=== PATIENT | female | born 1990 | race Caucasian/White ===

== ENCOUNTER 2017-01-18 19:57 | Emergency (ER) | payer OTHER ==
--- NOTE | 2017-01-18 21:03 | DIAGNOSTIC IMAGING REPORT ---
PROCEDURE: CT ABDOMEN/PELVIS W/O CONTRAST INDICATION: FLANK PAIN TECHNIQUE: Noncontrast axial images with sagittal and coronal reformations. COMPARISON: None. FINDINGS: ABDOMEN: Kidneys and ureters are normal. No evidence of urinary tract calculus or obstruction. Mild distention of the gallbladder with findings suggesting hyperdense layering material. Liver, spleen, pancreas, and aorta are normal. Bowel pattern is normal, including appendix. PELVIS: Uterus and adnexal structures are normal. No evidence of free fluid. IMPRESSION: 1. Mild distention of the gallbladder with findings suggesting layering hyperdense material. Consider biliary sludge or gallstones. 2. Normal kidneys. No evidence of urinary tract obstruction. 3. Otherwise negative CT abdomen and pelvis. 4. Findings discussed with DONAVON Seay. All CT scans at this facility use dose modulation, iterative reconstruction, and/or weight-based dosing when appropriate to reduce radiation dose to as low as reasonably achievable.
--- NOTE | 2017-01-18 22:30 | ED CLINICAL REPORT ---
Clinical Report - Physicians/Mid Levels [facility] [address] [place] [address] 01/18/2017 19:59 Patient: CONNIE PARSONS Time Seen: 20:12; initial patient contact. Arrived- By private vehicle. Historian- patient. HISTORY OF PRESENT ILLNESS Chief Complaint: VOMITING. dysuria. This started today ( Patient reports she started having some low back pain and nausea. She reports some discomfort with urination. She states she has a history of kidney stones.). no fever, no chills, also has right upper quadrant pain when bending over. The patient has had flank pain. She has had nausea and vomiting. The vomiting has occurred only once. No black stools, bloody stools, abdominal pain or constipation. Has not recently been on antibiotics. The illness is described as mild. Similar symptoms previously: Several times. Recent medical care: Not recently seen/assessed. REVIEW OF SYSTEMS No fever, muscle aches or difficulty with urination. All systems otherwise negative, except as recorded above. PAST HISTORY See nurses notes. Problems: Nephrolithiasis. Depression. Additional Surgeries: no known surgeries. Medications: Wellbutrin Oral 300 mg, daily. Allergies: Penicillin. SOCIAL HISTORY Never smoker. No drug use. ADDITIONAL NOTES The nursing notes have been reviewed with agreement regarding the chief complaint, HPI, ROS, PMH and patient medications and allergies. PHYSICAL EXAM Vital Signs: 01/18/2017 22:33 BP: 134/93. HR: 93. RR: 15. O2 saturation: 100%. Temp: 98.1 F. 01/18/2017 21:26 BP: 137/81. HR: 90. RR: 20. O2 saturation: 100%. Pain level now: 5/10. Have been reviewed. Appearance: Alert. Oriented X3. No acute distress. Eyes: Pupils equal, round and reactive to light. Eyes normal inspection. Neck: Normal inspection. Neck supple. CVS: Normal heart rate and rhythm. Heart sounds normal. Respiratory: No respiratory distress. Breath sounds normal. Abdomen: Soft. Mild tenderness in the right upper quadrant with guarding present. Positive Max's sign. No rebound tenderness or obturator or psoas sign present. Bowel sounds normal. No organomegaly. No mass. Femoral pulses equal. Back: Mild CVA tenderness on the right. Skin: Skin warm and dry. Normal skin color. No rash. Normal skin turgor. Extremities: No lower extremity edema. Neuro: Oriented X 3. LABS, X-RAYS, AND EKG Abdominal CT: Name: Connie Parsons : 1990 MR#: [id number] Ordering Provider: MARY JO GOMEZ Exam(s): CT ABDOMEN/PELVIS W/O CONTRAST Date of Exam: 01/18/2017 __ PROCEDURE: CT ABDOMEN/PELVIS W/O CONTRAST INDICATION: FLANK PAIN TECHNIQUE: Noncontrast axial images with sagittal and coronal reformations. COMPARISON: None. FINDINGS: ABDOMEN: Kidneys and ureters are normal. No evidence of urinary tract calculus or obstruction. Mild distention of the gallbladder with findings suggesting hyperdense layering material. Liver, spleen, pancreas, and aorta are normal. Bowel pattern is normal, including appendix. PELVIS: Uterus and adnexal structures are normal. No evidence of free fluid. IMPRESSION: 1. Mild distention of the gallbladder with findings suggesting layering hyperdense material. Consider biliary sludge or gallstones. 2. Normal kidneys. No evidence of urinary tract obstruction. 3. Otherwise negative CT abdomen and pelvis. 4. Findings discussed with DONAVON Seay. All CT scans at this facility use dose modulation, iterative reconstruction, and/or weight-based dosing when appropriate to reduce radiation dose to as low as reasonably achievable. Electronically Final signed by:Philip Gardner MD 01/18/2017 8:59:40 PM Technologist: IM.RSF. The study was independently viewed by me, interpreted by the radiologist and discussed with the radiologist. Abdominal Sonogram: No acute disease. No gallstones. The study was independently viewed by me, interpreted by the radiologist and discussed with the radiologist. Laboratory Tests: UA-Culture if indicated: (ROSANNE: 01/18/2017 20:06) ( [facility] 01/18/2017 20:37) Final results Test Result Flag Units (Reference) URINE COLOR YELLOW URINE APPEARANCE CLOUDY URINE GLUCOSE NEGATIVE (NEGATIVE) URINE BILIRUBIN NEGATIVE (NEGATIVE) URINE KETONE TRACE (NEGATIVE) URINE SPECIFIC GRAVITY 1.020 (1.010-1.030) URINE PH 7.5 (5.0-8.0) URINE PROTEIN TRACE (NEGATIVE) URINE UROBILINOGEN 0.2 EU/dL (0.2-1.0) URINE NITRITE NEGATIVE (NEGATIVE) URINE BLOOD NEGATIVE (NEGATIVE) URINE LEUK ESTERASE NEGATIVE (NEGATIVE) URINE RBC NONE SEEN rbc/hpf (0-1) URINE WBC 1-3 wbc/hpf (0-1) URINE EPITHELIAL CELLS 1-3 EPI/hpf (0-5) URINE BACTERIA TRACE (<1+) (NONE SEEN) URINE COMMENT CULT NOT INDICATED 2+ MUCUS3+ AMORPHOUS URATESURINE CULTURES ARE SET-UP BASED ON THE FOLLOWING CRITERIA:POSITIVE NITRITEPOSITIVE LEUKOCYTE ESTERASEGREATER THAN 10 WHITE BLOOD CELLSMODERATE (2+) OR GREATER BACTERIA Urine: (ROSANNE: 01/18/2017 20:06) ( [facility] 01/18/2017 20:29) Final results Test Result Flag Units (Reference) URINE NEGATIVE CMP: (ROSANNE: 01/18/2017 20:10) ( [facility] 01/18/2017 21:46) Final results Test Result Flag Units (Reference) GLUCOSE 94 mg/dL (70-110) BUN 14 mg/dL (7-18) CREATININE 0.7 mg/dL (0.6-1.3) Estimated GFR >60 mL/min Estimated GFR- >60 mL/min Note: Persistent reduction over 3 months in eGFR<60 mL/min/1.73 m2 defines CKD. Patients with eGFR values>=60 mL/min/1.73 m2 may also have CKD if evidence ofpersistent proteinuria. Additional information may be foundat www.kidney.org. SODIUM 141 mmol/L (136-145) POTASSIUM 3.7 mmol/L (3.5-5.1) CHLORIDE 102 mmol/L (98-107) CARBON DIOXIDE 28 mmol/L (21-32) CALCIUM 9.5 mg/dL (8.5-10.1) TOTAL PROTEIN 8.0 g/dL (6.4-8.2) ALBUMIN 4.3 g/dL (3.3-5.0) BILIRUBIN, TOTAL 0.4 mg/dL (0.0-1.0) ALKALINE PHOSPHATASE 69 U/L (46-116) AST (SGOT) 21 U/L (15-37) ALT (SGPT) 25 U/L (12-78) . PROGRESS AND PROCEDURES Course of Care: Patient is stable. Physical exam findings are improved. Symptoms much better. CLINICAL IMPRESSION Intractable vomiting with nausea and dehydration. Biliary colic. No gallstones or cholecystitis. INSTRUCTIONS No strenuous activity. Take clear liquids only for the next 24 hours. No alcohol. Do not smoke. Warnings: Further evaluation is necessary. It is very important to follow up with a physician. Your Current Medications: CONTINUE TAKING THE FOLLOWING MEDICATIONS: Wellbutrin Oral : 300 mg daily. Prescription Medications: Reglan 10 mg tablets: take 1 orally every 8 hours as needed for nausea, vomiting or indigestion. Dispense fifteen (15). No refills. Substitution is permissible. Follow-up: Follow up with your doctor Thursday if not better. Follow up with a adzing and boring machine feeder- as recommended by your primary care physician- if not better. Understanding of the discharge instructions verbalized by patient. (Electronically signed by Mary Jo Gomez PA-C 01/18/2017 23:13)
--- NOTE | 2017-01-18 22:30 | ED CLINICAL REPORT ---
Clinical Report - Physicians/Mid Levels [facility] [address] [place] [address] 01/18/2017 19:59 Patient: CONNIE PARSONS Time Seen: 20:12; initial patient contact. Arrived- By private vehicle. Historian- patient. HISTORY OF PRESENT ILLNESS Chief Complaint: VOMITING. dysuria. This started today ( Patient reports she started having some low back pain and nausea. She reports some discomfort with urination. She states she has a history of kidney stones.). no fever, no chills, also has right upper quadrant pain when bending over. The patient has had flank pain. She has had nausea and vomiting. The vomiting has occurred only once. No black stools, bloody stools, abdominal pain or constipation. Has not recently been on antibiotics. The illness is described as mild. Similar symptoms previously: Several times. Recent medical care: Not recently seen/assessed. REVIEW OF SYSTEMS No fever, muscle aches or difficulty with urination. All systems otherwise negative, except as recorded above. PAST HISTORY See nurses notes. Problems: Nephrolithiasis. Depression. Additional Surgeries: no known surgeries. Medications: Wellbutrin Oral 300 mg, daily. Allergies: Penicillin. SOCIAL HISTORY Never smoker. No drug use. ADDITIONAL NOTES The nursing notes have been reviewed with agreement regarding the chief complaint, HPI, ROS, PMH and patient medications and allergies. PHYSICAL EXAM Vital Signs: 01/18/2017 22:33 BP: 134/93. HR: 93. RR: 15. O2 saturation: 100%. Temp: 98.1 F. 01/18/2017 21:26 BP: 137/81. HR: 90. RR: 20. O2 saturation: 100%. Pain level now: 5/10. Have been reviewed. Appearance: Alert. Oriented X3. No acute distress. Eyes: Pupils equal, round and reactive to light. Eyes normal inspection. Neck: Normal inspection. Neck supple. CVS: Normal heart rate and rhythm. Heart sounds normal. Respiratory: No respiratory distress. Breath sounds normal. Abdomen: Soft. Mild tenderness in the right upper quadrant with guarding present. Positive Max's sign. No rebound tenderness or obturator or psoas sign present. Bowel sounds normal. No organomegaly. No mass. Femoral pulses equal. Back: Mild CVA tenderness on the right. Skin: Skin warm and dry. Normal skin color. No rash. Normal skin turgor. Extremities: No lower extremity edema. Neuro: Oriented X 3. LABS, X-RAYS, AND EKG Abdominal CT: Name: Connie Parsons : 1990 MR#: [id number] Ordering Provider: MARY JO GOMEZ Exam(s): CT ABDOMEN/PELVIS W/O CONTRAST Date of Exam: 01/18/2017 __ PROCEDURE: CT ABDOMEN/PELVIS W/O CONTRAST INDICATION: FLANK PAIN TECHNIQUE: Noncontrast axial images with sagittal and coronal reformations. COMPARISON: None. FINDINGS: ABDOMEN: Kidneys and ureters are normal. No evidence of urinary tract calculus or obstruction. Mild distention of the gallbladder with findings suggesting hyperdense layering material. Liver, spleen, pancreas, and aorta are normal. Bowel pattern is normal, including appendix. PELVIS: Uterus and adnexal structures are normal. No evidence of free fluid. IMPRESSION: 1. Mild distention of the gallbladder with findings suggesting layering hyperdense material. Consider biliary sludge or gallstones. 2. Normal kidneys. No evidence of urinary tract obstruction. 3. Otherwise negative CT abdomen and pelvis. 4. Findings discussed with DONAVON Seay. All CT scans at this facility use dose modulation, iterative reconstruction, and/or weight-based dosing when appropriate to reduce radiation dose to as low as reasonably achievable. Electronically Final signed by:Philip Gardner MD 01/18/2017 8:59:40 PM Technologist: IM.RSF. The study was independently viewed by me, interpreted by the radiologist and discussed with the radiologist. Abdominal Sonogram: No acute disease. No gallstones. The study was independently viewed by me, interpreted by the radiologist and discussed with the radiologist. Laboratory Tests: UA-Culture if indicated: (ROSANNE: 01/18/2017 20:06) ( [facility] 01/18/2017 20:37) Final results Test Result Flag Units (Reference) URINE COLOR YELLOW URINE APPEARANCE CLOUDY URINE GLUCOSE NEGATIVE (NEGATIVE) URINE BILIRUBIN NEGATIVE (NEGATIVE) URINE KETONE TRACE (NEGATIVE) URINE SPECIFIC GRAVITY 1.020 (1.010-1.030) URINE PH 7.5 (5.0-8.0) URINE PROTEIN TRACE (NEGATIVE) URINE UROBILINOGEN 0.2 EU/dL (0.2-1.0) URINE NITRITE NEGATIVE (NEGATIVE) URINE BLOOD NEGATIVE (NEGATIVE) URINE LEUK ESTERASE NEGATIVE (NEGATIVE) URINE RBC NONE SEEN rbc/hpf (0-1) URINE WBC 1-3 wbc/hpf (0-1) URINE EPITHELIAL CELLS 1-3 EPI/hpf (0-5) URINE BACTERIA TRACE (<1+) (NONE SEEN) URINE COMMENT CULT NOT INDICATED 2+ MUCUS3+ AMORPHOUS URATESURINE CULTURES ARE SET-UP BASED ON THE FOLLOWING CRITERIA:POSITIVE NITRITEPOSITIVE LEUKOCYTE ESTERASEGREATER THAN 10 WHITE BLOOD CELLSMODERATE (2+) OR GREATER BACTERIA Urine: (ROSANNE: 01/18/2017 20:06) ( [facility] 01/18/2017 20:29) Final results Test Result Flag Units (Reference) URINE NEGATIVE CMP: (ROSANNE: 01/18/2017 20:10) ( [facility] 01/18/2017 21:46) Final results Test Result Flag Units (Reference) GLUCOSE 94 mg/dL (70-110) BUN 14 mg/dL (7-18) CREATININE 0.7 mg/dL (0.6-1.3) Estimated GFR >60 mL/min Estimated GFR- >60 mL/min Note: Persistent reduction over 3 months in eGFR<60 mL/min/1.73 m2 defines CKD. Patients with eGFR values>=60 mL/min/1.73 m2 may also have CKD if evidence ofpersistent proteinuria. Additional information may be foundat www.kidney.org. SODIUM 141 mmol/L (136-145) POTASSIUM 3.7 mmol/L (3.5-5.1) CHLORIDE 102 mmol/L (98-107) CARBON DIOXIDE 28 mmol/L (21-32) CALCIUM 9.5 mg/dL (8.5-10.1) TOTAL PROTEIN 8.0 g/dL (6.4-8.2) ALBUMIN 4.3 g/dL (3.3-5.0) BILIRUBIN, TOTAL 0.4 mg/dL (0.0-1.0) ALKALINE PHOSPHATASE 69 U/L (46-116) AST (SGOT) 21 U/L (15-37) ALT (SGPT) 25 U/L (12-78) . PROGRESS AND PROCEDURES Course of Care: Patient is stable. Physical exam findings are improved. Symptoms much better. CLINICAL IMPRESSION Intractable vomiting with nausea and dehydration. Biliary colic. No gallstones or cholecystitis. INSTRUCTIONS No strenuous activity. Take clear liquids only for the next 24 hours. No alcohol. Do not smoke. Warnings: Further evaluation is necessary. It is very important to follow up with a physician. Your Current Medications: CONTINUE TAKING THE FOLLOWING MEDICATIONS: Wellbutrin Oral : 300 mg daily. Prescription Medications: Reglan 10 mg tablets: take 1 orally every 8 hours as needed for nausea, vomiting or indigestion. Dispense fifteen (15). No refills. Substitution is permissible. Follow-up: Follow up with your doctor Thursday if not better. Follow up with a day care supervisor- as recommended by your primary care physician- if not better. Understanding of the discharge instructions verbalized by patient. (Electronically signed by Mary Jo Gomez PA-C 01/18/2017 23:13)
--- NOTE | 2017-01-18 22:31 | ED ORDER SUMMARY ---
..... Patient: FEDE PARSONS OrderSheet [facility] VisitID: [id number] [place] [address] 26y, F Registration Date/Time: 01/18/2017 ORDER SHEET Weight: 74.8 kg (stated) Allergies: Penicillin GENERAL ORDERS: Urine Urgent (20:12 01/18/2017 ABlanchette PA-C) (Ack 20:14 IJurca ER Tech1) (20:41 HSoule) UA-Culture if indicated Urgent (20:12 01/18/2017 ABlanchette PA-C) (Ack 20:14 IJurca ER Tech1) (20:41 HSoule) CT Abd/Pel wo Cont (history of stones, left flank pain) Urgent (20:34 01/18/2017 ABlanchette PA-C) (Ack 20:38 IJurca ER Tech1) (22:20 HSoule) CMP Urgent (21:02 01/18/2017 ABlanchette PA-C) (Ack 21:03 IJurca ER Tech1) (22:20 HSoule) US Abdomen Limited (Yes) (right upper quad with sludge in the GB seen on CT, needs better view of gallbladder) Urgent (21:02 01/18/2017 ABlanchette PA-C) (Ack 21:13 IJurca ER Tech1) (22:31 AMcQuoid ER Tech1) MEDICATION ORDERS: Zofran ODT PO 4 mg (NOW) (21:01/18/2017 ABlanchette PA-C) (Cancelled: Wrong Order21:06 HSoule) IV FLUIDS: Zofran IV 4 mg (NOW) (20:23 01/18/2017 HSoule verbal order read back to ABlanchette PA-C) (Ack 20:23 HSoule) (20:26 HSoule) IV NS with Normal Saline 1 Liter: initial bolus none -, then 1000 mL/hr for X1 (NOW) (21:01 01/18/2017 ABlanchette PA-C) (21:06 HSoule) Zofran IV 4 mg (NOW) (21:07 01/18/2017 HSoule verbal order read back to ABlanchette PA-C) (21:07 HSoule) Toradol IV 30 mg (NOW) (21:07 01/18/2017 HSoule verbal order read back to Mari ANDRADE) (21:07 HSoule) ORDER SHEET NOTES: [Electronically signed by John Flores R.N. (22:38 01/18/2017)] [Electronically signed by Yane Sutton PA-C (23:13 01/18/2017)] [Electronically locked/signed by John Flores R.N. (:38 01/18/2017)]
--- NOTE | 2017-01-18 22:31 | ED NURSING NOTES ---
Clinical Report - Nurses [facility] [address] [place] [address] 01/18/2017 19:59 [id number] Triage time 20:05 Jan 18 2017. Acuity: LEVEL 3. Chief Complaint: PAINFUL URINATION and LOW BACK PAIN (vomiting). SEPSIS SCREEN: Sepsis Screen: negative. Negative (no infection suspected/documented). --20:09 Jany Covarrubias 20:05 01/18/17. HR: 92. RR: 20. O2 saturation: 98% on room air. Temp: 98.7 F (oral). Pain level now: 03/07. --20:09 Jany Covarrubias. Weight: 74.8 kg stated. Height/Length: 66 inches Per Patient. BMI: 26.6. --20:06 Jany Covarrubias. Medications Wellbutrin Oral 300 mg, daily. --20:08 Jany Covarrubias. Allergies Penicillin. --20:09 Jany Covarrubias. Medication/allergy information source: the patient. --20:09 Jany Covarrubias. History Arrived by private vehicle. Historian: patient. Unaccompanied. Primary physician (loulou roman). This started last night. ( Patient reports she started having some low back pain and nausea. She reports some discomfort with urination. She states she has a history of kidney stones.). PAST MEDICAL HX: Immunizations: up-to-date. Last normal menstrual period- December 30. Sexual history - sexually active. No contraception. SOCIAL HX: Never smoker. Occasional alcohol use. History of drug use: marijuana. No infectious disease exposure. ABUSE ASSESSMENT: No report of abuse. FALL RISK ASSESSMENT: Fall risk assessment completed. No fall risk identified. NUTRITIONAL RISK ASSESSMENT: The nutritional risk assessment revealed no deficiencies. FUNCTIONAL ASSESSMENT: Functional assessment: no impairments noted. LEARNING NEEDS ASSESSMENT: The learning needs assessment revealed no barriers. SKIN INTEGRITY ASSESSMENT: Skin integrity risk assessment completed. No skin integrity risk identified. --20:09 Jany Covarrubias. PROBLEMS: Nephrolithiasis. Depression. --20:09 Jany Covarrubias. ADDITIONAL SURGERIES: no known surgeries. Interventions ID band on patient. To treatment room. --20: Jany Covarrubias. PHYSICAL ASSESSMENT Ambulatory to room. GENERAL / NEURO / PSYCH: Alert. Oriented X 4. Appears in no acute distress. HEENT: Mucous membranes are pink. RESPIRATORY: Respirations not labored. CVS: Normal heart rate and rhythm. GI / : Abdomen soft. SKIN: Skin is warm and dry. BACK: ( Right side low back pain radiates to right side of abdomen). --20:10 Jany Covarrubias. NURSING PROGRESS NOTES 20:01/18/2017 Site #1 started via IV in the right antecubital space with an 20g angiocath, with aseptic technique and good blood return; one attempt. Blood drawn: rainbow set. Labeled in the presence of the patient and sent to the lab. Saline lock flushed with 10 mL saline. --20: Jany Covarrubias 20:01/18/17. Monitoring of patient in place. Patient gowned. Reassurance given to the patient. Two patient identifiers checked. Call light placed in reach. Side rails up x 1. Bed placed in lowest position. Brakes of bed on. Patient ready for evaluation- chart flagged and ED physician notified. --20: Jany Covarrubias Patient ID band checked for patient name and birthdate: patient confirmed. Instructions provided to collect clean catch urine and patient verbalized understanding. Clean catch urine collected with return of yellow-colored clear urine; sample sent to lab for urinalysis and HCG. Specimen labeled in the presence of the patient. --20: Jany Covarrubias 20:26 01/18/2017 Zofran (Ondansetron HCl) IVP 4 mg given over 1 minute(s) via site #1. Allergies verified and confirmed 5 rights. IV patency established. IV site checked: no pain, redness, or swelling. IV flushed thoroughly pre- and post-medication administration. IVP given by RN. --20: Jany Covarrubias 21:06 01/18/2017 Started bag #1 1000 mL IV Fluids IV NS (Saline); at 1000 mL/hr over 1 hour(s) via site #1 via IV pump. Allergies verified and confirmed 5 rights. IV patency established. IV site checked: no pain, redness, or swelling. IV flushed thoroughly pre- and post-medication administration. --21:06 Jany Covarrubias 21:01/18/2017 Zofran (Ondansetron HCl) IVP 4 mg given over 1 minute(s) via site #1. Allergies verified and confirmed 5 rights. IV patency established. IV site checked: no pain, redness, or swelling. IV flushed thoroughly pre- and post-medication administration. IVP given by RN. --21:07 Jany Covarrubias 21:01/18/2017 Toradol IVP 30 mg given over 1 minute(s) via site #1. Allergies verified and confirmed 5 rights. IV patency established. IV site checked: no pain, redness, or swelling. IV flushed thoroughly pre- and post-medication administration. IVP given by RN. --21:07 Jany Covarrubias 21:26 01/18/17. BP: 137/81. HR: 90. RR: 20. O2 saturation: 100% on room air. Pain level now: 5/10. --21:28 Jany Covarrubias 21:53 Ultrasound at bedside for exam. --21:54 McQuoid, Rakel, ER Tech1. DISPOSITION / DISCHARGE 22:34 01/18/2017 Site #1 removed upon discharge. Catheter intact. Bandaid applied. --22:34 John Flores R.N. Departure time: 22:37. Condition at departure: improved. ( pain is resolved.). No learning barriers present. Discharge instructions provided and reviewed with the patient. Reviewed medication(s) side effects, precautions, dosing and course information. Prescription(s) given to the patient (reglan). Patient verbalized understanding. Written instructions provided in Mexican. The patient was discharged by the physician business support assistant. She was discharged home and unaccompanied at time of discharge. She left the Emergency Department ambulatory and via private vehicle. Patient driving. --22:37 John Flores R.N. 22:33 01/18/17. BP: 134/93. HR: 93. RR: 15. O2 saturation: 100%. Temp: 98.1 F. Pain level now 0/10. --22:37 John Flores R.N. Departure time: 22:38. SHERRY COMA SCORE: [place] Coma Scale: 15- eyes open spontaneously (4); best verbal response- oriented x 4 (5); best motor response- obeys commands (6). --22:38 John Flores R.N. Locked/Released at 01/18/2017 22:38 by John Flores R.N.
--- NOTE | 2017-01-18 22:31 | ED ORDER SUMMARY ---
..... Patient: FEDE PARSONS OrderSheet [facility] VisitID: [id number] [place] [address] 26y, F Registration Date/Time: 01/18/2017 ORDER SHEET Weight: 74.8 kg (stated) Allergies: Penicillin GENERAL ORDERS: Urine Urgent (20:12 01/18/2017 ABlanchette PA-C) (Ack 20:14 IJurca ER Tech1) (20:41 HSoule) UA-Culture if indicated Urgent (20:12 01/18/2017 ABlanchette PA-C) (Ack 20:14 IJurca ER Tech1) (20:41 HSoule) CT Abd/Pel wo Cont (history of stones, left flank pain) Urgent (20:34 01/18/2017 ABlanchette PA-C) (Ack 20:38 IJurca ER Tech1) (22:20 HSoule) CMP Urgent (21:02 01/18/2017 ABlanchette PA-C) (Ack 21:03 IJurca ER Tech1) (22:20 HSoule) US Abdomen Limited (Yes) (right upper quad with sludge in the GB seen on CT, needs better view of gallbladder) Urgent (21:02 01/18/2017 ABlanchette PA-C) (Ack 21:13 IJurca ER Tech1) (22:31 AMcQuoid ER Tech1) MEDICATION ORDERS: Zofran ODT PO 4 mg (NOW) (21:01/18/2017 ABlanchette PA-C) (Cancelled: Wrong Order21:06 HSoule) IV FLUIDS: Zofran IV 4 mg (NOW) (20:23 01/18/2017 HSoule verbal order read back to ABlanchette PA-C) (Ack 20:23 HSoule) (20:26 HSoule) IV NS with Normal Saline 1 Liter: initial bolus none -, then 1000 mL/hr for X1 (NOW) (21:01 01/18/2017 ABlanchette PA-C) (21:06 HSoule) Zofran IV 4 mg (NOW) (21:07 01/18/2017 HSoule verbal order read back to ABlanchette PA-C) (21:07 HSoule) Toradol IV 30 mg (NOW) (21:07 01/18/2017 HSoule verbal order read back to Mari ANDRADE) (21:07 HSoule) ORDER SHEET NOTES: [Electronically signed by John Flores R.N. (22:38 01/18/2017)] [Electronically signed by Yane Sutton PA-C (23:13 01/18/2017)] [Electronically locked/signed by John Flores R.N. (:38 01/18/2017)]
--- NOTE | 2017-01-18 23:13 | ED MAR SUMMARY ---
..... Medication Administration Record [facility] [address] [place] [address] Patient: FEDE PARSONS Visit ID: [id number] 26y, F Weight: 74.8 kg Height/Length: 66 in BMI: 26.6 ALLERGIES: Penicillin Given 20:01/18/2017 Jany Covarrubias, Medication Administered: ZOFRAN [IVP] (ONDANSETRON HCL), Dose: 4 mg IVP over 1 minute(s), Site: #1 right AC. Medication Ordered: Zofran IV 4 mg (NOW). Start 21:01/18/2017 Jany Covarrubias, Medication Administered: IV NS (SALINE), Dose: IV Fluids over 1 hour(s), Rate: 1000 mL/hr, Dispensed: 1000 mL bag, Site: #1 right AC. Medication Ordered: IV NS with Normal Saline 1 Liter: initial bolus none -, then 1000 mL/hr for X1 (NOW). Given :01/18/2017 Jany Covarrubias, Medication Administered: ZOFRAN [IVP] (ONDANSETRON HCL), Dose: 4 mg IVP over 1 minute(s), Site: #1 right AC. Medication Ordered: Zofran IV 4 mg (NOW). Given :01/18/2017 Jany Covarrubias, Medication Administered: TORADOL [IVP], Dose: 30 mg IVP over 1 minute(s), Site: #1 right AC. Medication Ordered: Toradol IV 30 mg (NOW).
--- NOTE | 2017-01-18 23:13 | ED MAR SUMMARY ---
..... Medication Administration Record [facility] [address] [place] [address] Patient: FEDE PARSONS Visit ID: [id number] 26y, F Weight: 74.8 kg Height/Length: 66 in BMI: 26.6 ALLERGIES: Penicillin Given 20:01/18/2017 Jany Covarrubias, Medication Administered: ZOFRAN [IVP] (ONDANSETRON HCL), Dose: 4 mg IVP over 1 minute(s), Site: #1 right AC. Medication Ordered: Zofran IV 4 mg (NOW). Start 21:01/18/2017 Jany Covarrubias, Medication Administered: IV NS (SALINE), Dose: IV Fluids over 1 hour(s), Rate: 1000 mL/hr, Dispensed: 1000 mL bag, Site: #1 right AC. Medication Ordered: IV NS with Normal Saline 1 Liter: initial bolus none -, then 1000 mL/hr for X1 (NOW). Given :01/18/2017 Jany Covarrubias, Medication Administered: ZOFRAN [IVP] (ONDANSETRON HCL), Dose: 4 mg IVP over 1 minute(s), Site: #1 right AC. Medication Ordered: Zofran IV 4 mg (NOW). Given :01/18/2017 Jany Covarrubias, Medication Administered: TORADOL [IVP], Dose: 30 mg IVP over 1 minute(s), Site: #1 right AC. Medication Ordered: Toradol IV 30 mg (NOW).
--- NOTE | 2017-01-18 23:13 | ED DISCHARGE INSTRUCTIONS ---
Patient: FEDE PARSONS General Instructions [facility] VisitID: [id number] [place] [address] 26y, F Registration Date/Time: 01/18/2017 Intractable vomiting with nausea and dehydration. Biliary colic. No gallstones or cholecystitis. INSTRUCTIONS No strenuous activity. Take clear liquids only for the next 24 hours. No alcohol. Do not smoke. Warnings: Further evaluation is necessary. It is very important to follow up with a physician. Your Current Medications: CONTINUE TAKING THE FOLLOWING MEDICATIONS: Wellbutrin Oral : 300 mg daily. Prescription Medications: Reglan 10 mg tablets: take 1 orally every 8 hours as needed for nausea, vomiting or indigestion. Dispense fifteen (15). No refills. Substitution is permissible. Follow-up: Follow up with your doctor Thursday if not better. Follow up with a software quality tester- as recommended by your primary care physician- if not better. Understanding of the discharge instructions verbalized by patient. No strenuous activity. (Electronically signed by Yane Sutton PA-C 01/18/2017 23:13)
--- NOTE | 2017-01-18 23:13 | ED MED RECONCILIATION SUMMARY ---
Patient: FEDE PARSONS Medication Reconciliation Report [facility] VisitID: [id number] [place] [address] 26y, F Registration Date/Time: 01/18/2017 Weight: 74.8 kg Height/Length: 66 in. BMI: 26.6 ALLERGIES: Penicillin The patient's Home Medications are listed below: CONTINUE TAKING THE FOLLOWING MEDICATIONS: Wellbutrin Oral 300 mg, daily The source(s) of the original Home Medication information: patient The following Medications were given to the patient in the Emergency Department: Zofran [IVP] IVP 4 mg, administered: 01/18/2017 8:26:00 PM IV NS IV Fluids bolus 0, then 1000 mL/hr, administered: 01/18/2017 9:06:00 PM Zofran [IVP] IVP 4 mg, administered: 01/18/2017 9:07:00 PM Toradol [IVP] IVP 30 mg, administered: 01/18/2017 9:07:00 PM The following Medications were prescribed to the patient: Reglan 10 mg tablets: take 1 orally every 8 hours as needed for nausea, vomiting or indigestion. Dispense fifteen (15). No refills. Substitution is permissible. -- Yane Sutton PA-C
--- NOTE | 2017-01-18 23:13 | ED DISCHARGE INSTRUCTIONS ---
Patient: FEDE PARSONS General Instructions [facility] VisitID: [id number] [place] [address] 26y, F Registration Date/Time: 01/18/2017 Intractable vomiting with nausea and dehydration. Biliary colic. No gallstones or cholecystitis. INSTRUCTIONS No strenuous activity. Take clear liquids only for the next 24 hours. No alcohol. Do not smoke. Warnings: Further evaluation is necessary. It is very important to follow up with a physician. Your Current Medications: CONTINUE TAKING THE FOLLOWING MEDICATIONS: Wellbutrin Oral : 300 mg daily. Prescription Medications: Reglan 10 mg tablets: take 1 orally every 8 hours as needed for nausea, vomiting or indigestion. Dispense fifteen (15). No refills. Substitution is permissible. Follow-up: Follow up with your doctor Thursday if not better. Follow up with a solution consultant- as recommended by your primary care physician- if not better. Understanding of the discharge instructions verbalized by patient. No strenuous activity. (Electronically signed by Yane Sutton PA-C 01/18/2017 23:13)
--- NOTE | 2017-01-18 23:13 | ED MED RECONCILIATION SUMMARY ---
Patient: FEDE PARSONS Medication Reconciliation Report [facility] VisitID: [id number] [place] [address] 26y, F Registration Date/Time: 01/18/2017 Weight: 74.8 kg Height/Length: 66 in. BMI: 26.6 ALLERGIES: Penicillin The patient's Home Medications are listed below: CONTINUE TAKING THE FOLLOWING MEDICATIONS: Wellbutrin Oral 300 mg, daily The source(s) of the original Home Medication information: patient The following Medications were given to the patient in the Emergency Department: Zofran [IVP] IVP 4 mg, administered: 01/18/2017 8:26:00 PM IV NS IV Fluids bolus 0, then 1000 mL/hr, administered: 01/18/2017 9:06:00 PM Zofran [IVP] IVP 4 mg, administered: 01/18/2017 9:07:00 PM Toradol [IVP] IVP 30 mg, administered: 01/18/2017 9:07:00 PM The following Medications were prescribed to the patient: Reglan 10 mg tablets: take 1 orally every 8 hours as needed for nausea, vomiting or indigestion. Dispense fifteen (15). No refills. Substitution is permissible. -- Yane Sutton PA-C
--- NOTE | 2017-01-20 12:20 | DIAGNOSTIC IMAGING REPORT ---
PROCEDURE: US ABDOMEN ULTRASOUND-LIMITED INDICATION: Right abdominal pain. TECHNIQUE: Durand scale and color Doppler sonographic images of the abdomen were obtained. COMPARISON: Compared to CT abdomen and pelvis earlier today (01/18/2017). FINDINGS: There is a small amount of layering mobile echogenic material within the gallbladder. No evidence of shadow gallstones. Common duct is normal (4 mm). Portions of the liver, pancreas, and right kidney are seen, and are normal. IMPRESSION: 1. There is layering and mobile echogenic material within the gallbladder consistent with biliary sludge or cholesterol crystals (may represent precursors to gallstones). While there are no shadowing gallstones, consider gallbladder dysfunction or acalculus cholecystitis. 2. Report alert called to emergency room for DONAVON Seay.
== END 2017-01-18 22:38 | disposition home or self-care (01) ==
LOC: ED SRH 19:57
DX: R11.2 Nausea with vomiting, unspecified (principal); K80.50 Calculus of bile duct without cholangitis or cholecystitis without obstruction; E86.0 Dehydration; Z88.0 Allergy status to penicillin
CPT/HCPCS: 90004; 90100; 93070